=== PATIENT | female | born 1965 | race Caucasian/White ===

== ENCOUNTER 2017-03-05 23:31 | Emergency (ER) | payer BC ==
[2017-03-05 23:31] VITALS: BMI 54.6
[2017-03-05 23:59] VITALS: TEMP 98.2
[2017-03-06] MEDS ORDERED: Albuterol-Ipratrop 3 mg / 0.5 (3 ml) UD IH STA (01:13)
--- NOTE | 2017-03-06 01:14 | ED PDOC ---
Arrival/HPI - General Chief Complaint: Cough, Cold, Congestion Time Seen by Provider: 03/06/17 01:04 Historian: Patient - History of Present Illness Narrative History of Present Illness (Text): 03/06/17 01:13 Virginia Cárdenas is a 51 year old female, whose past medical history includes hypertension and chronic back pain, who presents to the Emergency department complaining of dry cough for 1 month. Patient states she was seen by her PMD for similar complaints recently and treated with antibiotics and nebulizer treatments, but denies any significant relief. Patient denies any fever, chills , chest pain, shortness of breath, nausea, vomiting, diarrhea, urinary symptoms , back pain, neck pain, headache, dizziness, or any other complaints. PMD: Dr. Hinkle Time/Duration: Other (1 month) Symptom Onset: Gradual Symptom Course: Unchanged Activities at Onset: Light Context: Home Past Medical History - Provider Review Nursing Documentation Reviewed: Yes - Infectious Disease Hx of Infectious Diseases: None - Tetanus Immunization Tetanus Immunization: Unknown - Reproductive Menopause: Yes - Cardiac Hx Cardiac Disorders: Yes Hx Hypertension: Yes - Pulmonary Hx Respiratory Disorders: No - Neurological Hx Neurological Disorder: No - HEENT Hx HEENT Disorder: No - Renal Hx Renal Disorder: No - Endocrine/Metabolic Hx Endocrine Disorders: No - Hematological/Oncological Hx Blood Transfusions: Yes Hx Blood Transfusion Reaction: No - Integumentary Hx Dermatological Disorder: Yes (ABSCESS TO LEG /CELLULITIS) - Musculoskeletal/Rheumatological Hx Musculoskeletal Disorders: Yes (SPINAL STENOSIS) Hx Falls: No - Gastrointestinal Hx Gastrointestinal Disorders: Yes Hx Diverticulitis: Yes - Genitourinary/Gynecological Hx Genitourinary Disorders: No - Psychiatric Hx Psychophysiologic Disorder: Yes Hx Depression: Yes Hx Emotional Abuse: No Hx Physical Abuse: No Hx Substance Use: No - Surgical History Other/Comment: BREAST REDUCTION - Anesthesia Hx Anesthesia Reactions: No Hx Malignant Hyperthermia: No - Suicidal Assessment Feels Threatened In Home Enviroment: No Family/Social History - Physician Review Nursing Documentation Reviewed: Yes Family/Social History: Unknown Family HX Smoking Status: Never Smoked Hx Alcohol Use: No Hx Substance Use: No Hx Substance Use Treatment: No Allergies/Home Meds Allergies/Adverse Reactions: Allergies No Known Allergies Allergy (Verified 02/08/16 13:15) Review of Systems - Physician Review All systems were reviewed & negative as marked: Yes - Review of Systems Constitutional: Normal. absent: Fevers Eyes: Normal ENT: Normal Respiratory: Cough. absent: Sputum Cardiovascular: Normal. absent: Chest Pain Gastrointestinal: Normal. absent: Abdominal Pain, Diarrhea, Nausea, Vomiting Genitourinary Female: Normal. absent: Dysuria, Frequency, Hematuria, Urine Output Changes Musculoskeletal: Normal. absent: Back Pain, Neck Pain Skin: Normal. absent: Rash Neurological: Normal. absent: Headache, Dizziness Endocrine: Normal Hemo/Lymphatic: Normal Psychiatric: Normal Physical Exam Vital Signs Reviewed: Yes Vital Signs Temp Pulse Resp BP Pulse Ox 03/05/17 23:57 98.2 F 99 H 20 149/102 H 95 Temperature: Afebrile Blood Pressure: Normal Pulse: Regular Respiratory Rate: Normal Appearance: Positive for: Well-Appearing, Non-Toxic, Comfortable Pain Distress: None Mental Status: Positive for: Alert and Oriented X 3 - Systems Exam Head: Present: Atraumatic, Normocephalic Pupils: Present: PERRL Extroacular Muscles: Present: EOMI Conjunctiva: Present: Normal Mouth: Present: Moist Mucous Membranes Neck: Present: Normal Range of Motion Respiratory/Chest: Present: Rhonchi. No: Respiratory Distress, Accessory Muscle Use Cardiovascular: Present: Regular Rate and Rhythm, Normal S1, S2. No: Murmurs Abdomen: Present: Normal Bowel Sounds. No: Tenderness, Distention, Peritoneal Signs Back: Present: Normal Inspection Upper Extremity: Present: Normal Inspection. No: Cyanosis, Edema Lower Extremity: Present: Normal Inspection. No: Edema Neurological: Present: GCS=15, CN II-XII Intact, Speech Normal Skin: Present: Warm, Dry, Normal Color. No: Rashes Psychiatric: Present: Alert, Oriented x 3, Normal Insight, Normal Concentration Medical Decision Making ED Course and Treatment: 03/06/17 01:13 Impression: 51 year old female complaining of dry cough for 1 month. Differential Diagnosis included but are not limited to: bronchitis Plan: -- CXR -- Duoneb -- Reassess and disposition Prior Visits: Notes and results from previous visits were reviewed. On 02/08/2016, pt was seen in the Emergency department for vaginal and rectal bleeding. Pt was admitted to the hospital for further evaluation. Progress Notes: 03/06/17 02:46 Reviewed radiology, Chest X-ray shows no acute processes. 03/06/17 03:15 On re-evaluation, patient feels better and is in no acute distress. I have discussed the results and plan with the patient, who expresses understanding. Patient in agreement with plan to be discharged home. Patient is stable for discharge. Patient was instructed to follow up with physician or return if symptoms worsen or new concerning symptoms arise. - RAD Interpretation Radiology Orders: 03/06/17 01:14 CHEST TWO VIEWS (PA/LAT) [RAD] Stat Mechanic Foreman: ED Physician - Medication Orders Current Medication Orders: Azithromycin (Zithromax) 500 mg PO ONCE STA PRN Reason: Protocol Stop: 03/06/17 03:20 Discontinued Medications Albuterol/Ipratropium (Duoneb 3 Mg/0.5 Mg (3 Ml) Ud) 3 ml IH ONCE STA Stop: 03/06/17 01:14 Last Admin: 03/06/17 01:26 Dose: 3 ml - Scribe Statement The provider has reviewed the documentation as recorded by the Tez Alba Provider Scribe Attestation: All medical record entries made by the Scribe were at my direction and personally dictated by me. I have reviewed the chart and agree that the record accurately reflects my personal performance of the history, physical exam, medical decision making, and the department course for this patient. I have also personally directed, reviewed, and agree with the discharge instructions and disposition. Disposition/Present on Arrival - Present on Arrival Any Indicators Present on Arrival: No History of DVT/PE: No History of Uncontrolled Diabetes: No Urinary Catheter: No History of Decub. Ulcer: No History Surgical Site Infection Following: None - Disposition Have Diagnosis and Disposition been Completed?: Yes Diagnosis: Bronchitis Disposition: HOME/ ROUTINE Disposition Time: 03:16 Patient Plan: Discharge Patient Problems: Current Active Problems Problem Status Onset Bronchitis Acute Condition: GOOD Discharge Instructions (ExitCare): Acute Bronchitis (ED) Additional Instructions: Continue your current meds/take meds as prescribed/follow up with your doctor this week Prescriptions: Benzonatate [Tessalon Perles] 100 mg PO TID PRN #21 sgl PRN Reason: Cough Azithromycin [Zithromax] 250 mg PO DAILY #4 tab Forms: [employer] ([place])
[2017-03-06 03:31] VITALS: BP 132/98; PULSE 85; RESP 18; O2SAT 98
--- NOTE | 2017-03-06 08:37 | RAD ---
HISTORY: cough COMPARISON: 02/08/2016 TECHNIQUE: Chest PA and lateral FINDINGS: LUNGS: No active pulmonary disease. PLEURA: No significant pleural effusion identified. No pneumothorax apparent. CARDIOVASCULAR: Normal. OSSEOUS STRUCTURES: No significant abnormalities. VISUALIZED UPPER ABDOMEN: Normal. OTHER FINDINGS: None. IMPRESSION: No active disease.
== END 2017-03-06 03:32 | disposition home or self-care (01) ==
LOC: ED 23:31
DX: J40 Bronchitis, not specified as acute or chronic (principal); I10 Essential (primary) hypertension

== ENCOUNTER 2017-07-03 06:36 | Day surgery (SDC) | payer MEDICAID ==
[2017-07-03 07:15] VITALS: BMI 54.6
[2017-07-03] MEDS ORDERED: Propofol 10 mg/ml Inj (20 ML) ONE (08:38)
[2017-07-03] MEDS ORDERED: Sodium Chloride 0.9% 1,000 ML IV SCH (09:30)
[2017-07-03 09:49] VITALS: BP 141/89; PULSE 74; RESP 20; TEMP 98.1; O2SAT 96
== END 2017-07-03 10:42 | disposition home or self-care (01) ==
LOC: ENDO 06:36
PROVIDERS: ATTEND Internal Medicine
DX: K25.9 Gastric ulcer, unspecified as acute or chronic, without hemorrhage or perforation (principal); K29.50 Unspecified chronic gastritis without bleeding; B96.81 Helicobacter pylori [H. pylori] as the cause of diseases classified elsewhere; K29.80 Duodenitis without bleeding; I10 Essential (primary) hypertension; J45.909 Unspecified asthma, uncomplicated; M51.26 Other intervertebral disc displacement, lumbar region; K51.90 Ulcerative colitis, unspecified, without complications; Z98.51 Tubal ligation status; K76.9 Liver disease, unspecified
CPT/HCPCS: 43239; 82948; 84703; 88305; 88342; J2001; J2704; J7040

== ENCOUNTER 2017-08-07 09:52 | Inpatient (IN) | payer MEDICAID ==
[2017-08-07] MEDS ORDERED: Bupivacaine 0.5% Inj(30mL) ONE (10:58)
[2017-08-07] MEDS ORDERED: Iohexol 240 (50 ml) ONE (10:58)
[2017-08-07] MEDS ORDERED: Midazolam 2 MG/2 ML VIAL ONE (11:39)
[2017-08-07] MEDS ORDERED: Propofol 10 mg/ml Inj (20 ML) ONE (11:39)
[2017-08-07] MEDS ORDERED: Lidocaine 2% Inj (20ml) ONE (11:39)
[2017-08-07] MEDS ORDERED: Rocuronium 10 mg/ml (5 ml) ONE ×2 (11:40→13:11)
[2017-08-07] MEDS ORDERED: Succinylcholine 200 mg/10 ml Inj IV ONE (11:40)
[2017-08-07] MEDS ORDERED: Sevoflurane - Inhalation Anesthetic Liq (250 ml) ONE (13:15)
[2017-08-07] MEDS ORDERED: Neostigmine Methylsulfate 3mg/3ml Syringe IV ONE (14:01)
[2017-08-07] MEDS ORDERED: Glycopyrrolate 0.2 mg/ml (2ml vial) ONE (14:02)
[2017-08-07] MEDS ORDERED: Bupivacaine Liposomal Inj 20 ml ONE (14:06)
[2017-08-07] MEDS: HYDROmorphone 0.5 mg/0.5 ml ISec IVP PRN ×3 (14:55→19:13)
[2017-08-07] MEDS ORDERED: Lactated Ringer's 1,000 ML IV SCH ×2 (15:00→15:45)
--- NOTE | 2017-08-07 15:48 | RAD ---
PROCEDURE: Operative cholangiogram HISTORY: ? CBD OBST COMPARISON: TECHNIQUE: Fluoroscopy was provided in the operating room. 26.4 seconds of fluoro time with cumulative dose of 9.64 mGy. Three images were submitted FINDINGS: There are no filling defects seen in the common duct. Contrast flows into the duodenum without obstruction IMPRESSION: As above
[2017-08-07] MEDS: Piperacillin/Tazobact 3.375 gm 100 ML IVPB SCH (18:58)
[2017-08-07] MEDS: Albuterol-Ipratrop 3 mg / 0.5 (3 ml) UD IH SCH (20:26)
[2017-08-08] MEDS: Piperacillin/Tazobact 3.375 gm 100 ML IVPB SCH ×3 (00:01→17:14)
[2017-08-08] MEDS: Albuterol-Ipratrop 3 mg / 0.5 (3 ml) UD IH SCH ×4 (01:23→20:16)
[2017-08-08] MEDS: HYDROmorphone 0.5 mg/0.5 ml ISec IVP PRN ×4 (03:55→21:04)
[2017-08-08] MEDS: Lactated Ringer's 1,000 ML IV SCH ×4 (06:00→18:27)
[2017-08-08 07:31] LABS: MEAN CELL VOLUME 92.5 fl (80.0-105.0); MEAN CORPUSCULAR HEMOGLOBIN 29.8 pg (25.0-35.0); MEAN CORPUSCULAR HGB CONC 32.2 g/dl (31.0-37.0); MEAN PLATELET VOLUME 12.1 fl (7.0-11.0); RBC 3.86 10^6/uL (3.5-6.1); RED CELL DISTRIBUTION WIDTH 13.8 % (11.5-14.5); WHITE BLOOD COUNT 6.1 10^3/ul (4.5-11.0)
[2017-08-08 07:32] LABS: HEMOGLOBIN 11.5 g/dL (12.0-16.0)
[2017-08-08 07:50] LABS: HDL CHOLESTEROL 38 mg/dL (29-60)
[2017-08-08 07:53] LABS: IRON 53 ug/dL (45-180)
[2017-08-08 08:00] LABS: LDL CHOLESTEROL 79 mg/dL (0-129)
[2017-08-08 08:04] LABS: % IRON SATURATION 19 % (20-55); TOTAL IRON BINDING CAPACITY 277 ug/dL (265-497)
--- NOTE | 2017-08-08 08:22 | HP ---
The patient is a 52-year-old female. CHIEF COMPLAINT: Abdominal pain. HISTORY OF PRESENT ILLNESS: Ms. Virginia Cárdenas is a 52-year-old, my private patient with history of multiple medical problems, came to [facility] with abdominal pain, has multiple times history of has nauseous, vomiting, pain was mainly epigastric for many years, now progressively worse. Patient describe it as pressure and grinding sensation and that is constant and nonradiating , more with food intake and associated with nausea, but no vomiting. Then, we admitted the patient to Dr. Edgard Pappas, who did the surgery, cholecystectomy. Patient had EGD, colonoscopy done in [address] Yeboah, which showed gastritis, duodenitis, dysphagia and gastric ulcers. Patient's colonoscopy showed diverticulosis. Patient reports constipation at times. Patient often takes Nexium and Zantac without any relief of her symptoms. REVIEW OF SYSTEMS: The patient was seen in her room, is in pain, sleepy, arousable, under the influence of anesthesia. No fever. No chills. No headache. No dizziness. No chest pain. No palpitation. But having abdominal pain. PAST MEDICAL HISTORY: Hypertension, asthma, herniated disc, ulcerative colitis, history of total of 4 pregnancies, total living children 3, miscarriage 1, section x2, in 1991, tubal ligation in 1994. FAMILY HISTORY: Father alive, mother alive, 6 brothers, 4 sisters. No family history of cancer. SOCIAL HISTORY: Tobacco use, no. Drugs, no. Alcohol, no. PHYSICAL EXAMINATION: VITAL SIGNS: Temperature 97.9, pulse 80, blood pressure 127/ 8o , respiratory rate 20. HEENT: Head is normocephalic and atraumatic. Eyes, PERRLA. Extraocular muscles are intact. Conjunctivae clear. Nose patent. Mucous membranes moist. NECK: Supple. No carotid bruit. No JVD or thyromegaly. CHEST: Bilaterally symmetrical. HEART: S1 and S2 positive. LUNGS: Clear to auscultation. ABDOMEN: Soft. Bowel sounds present. No organomegaly. EXTREMITIES: No edema. No cyanosis. NEUROLOGIC: The patient is sleepy, but arousable. Moving all 4 extremities. No focal deficit. LABORATORY DATA: We do not have recent labs today, but I reviewed old labs. On 08/04, white blood cell is 4.1, hemoglobin 13.5, hematocrit 40.9, platelets 178. ASSESSMENT AND PLAN: Ms. Virginia Cárdenas is a 52-year-old lady with history of cholelithiasis, today underwent laparoscopic exploratory cholecystectomy with intraoperative cholangiogram. Postoperative diagnoses are cholecystitis, cholelithiasis. Procedure is done by Dr. Edgard Pappas, did lysis of the adhesions also, history of hypertension, hypercholesterolemia, obesity, herniated disc of the back, history of peptic ulcer disease. Plan for endoscopy. CAT scan of the abdomen and pelvis was done. even transvaginal ultrasound was done, abdominal ultrasound was done, reviewed by me. Now, gastrointestinal and deep venous thrombosis prophylaxis. Pain management. Wound care as per the surgical team, history of abscess in the legs, spinal stenosis. epidural injections couple of times, colitis and diverticulitis and will follow up. Laurel Hinkle MD MTDFrandy
[2017-08-08] MEDS ORDERED: Non Formulary Medication (Omeprazole [Omeprazole] 40 MG) PO SCH (10:00)
[2017-08-08] MEDS: Pantoprazole 40 mg EC Tab PO SCH (10:06)
[2017-08-08 10:51] LABS: ALB/GLOB RATIO 1.2 (1.1-1.8); ALBUMIN 3.4 g/dL (3.0-4.8); ALT/SGPT 68 U/L (7-56); AST/SGOT 65 U/L (14-36); BLOOD UREA NITROGEN 13 mg/dL (7-21); CALCIUM 8.6 mg/dL (8.4-10.5); GFR AFRICAN-AMERICAN > 60; GFR NON-AFRICAN AMERICAN > 60
--- NOTE | 2017-08-08 11:26 | CP.PCM.PN ---
Subjective - Date & Time of Evaluation Date of Evaluation: 08/08/17 Time of Evaluation: 11:21 - Subjective Subjective: Surgery: Dr. Pappas Pt seen and examined. States she feels ok but has some post-op pain. She is out of bed to chair and states she would like something to drink. Denies nausea, vomiting, fevers or chills. Objective - Vital Signs/Intake and Output Vital Signs (last 24 hours): Temp Pulse Resp BP Pulse Ox 98.3 F 68 19 108/68 94 L 08/08/17 08:19 08/08/17 10:06 08/08/17 08:19 08/08/17 10:06 08/08/17 08:19 Intake and Output: 08/08/17 08/08/17 06:59 18:59 Intake Total 2020 Output Total 80 Balance 1940 - Medications Medications: Current Medications Albuterol/Ipratropium (Duoneb 3 Mg/0.5 Mg (3 Ml) Ud) 3 ml IH [id number] [facility] Last Admin: 08/08/17 07:29 Dose: 3 ml Amlodipine Besylate (Norvasc) 10 mg PO DAILY [facility] Last Admin: 08/08/17 10:06 Dose: Not Given Docusate Sodium (Colace) 100 mg PO BID [facility] Last Admin: 08/08/17 10:06 Dose: 100 mg Furosemide (Lasix) 40 mg PO DAILY [facility] Last Admin: 08/08/17 10:06 Dose: 40 mg Hydromorphone HCl (Dilaudid) 0.5 mg IVP Q4H PRN PRN Reason: Pain, severe (8-10) Last Admin: 08/08/17 10:05 Dose: 0.5 mg Lactated Ringer's (Lactated Ringer's) 1,000 mls @ 150 mls/hr IV .Q6H40M [facility] Stop: 08/09/17 05:31 Last Admin: 08/08/17 10:18 Dose: 150 mls/hr Ibuprofen (Motrin Tab) 400 mg PO Q6 PRN PRN Reason: Fever >100.4 F Losartan Potassium (Cozaar) 100 mg PO DAILY [facility] Last Admin: 08/08/17 10:06 Dose: 100 mg Metoclopramide HCl (Reglan) 10 mg IV ONCE PRN PRN Reason: Nausea/Vomiting Metoprolol Tartrate (Lopressor) 50 mg PO DAILY [facility] Last Admin: 08/08/17 10:06 Dose: 50 mg Nortriptyline HCl (Pamelor) 10 mg PO [facility] Last Admin: 08/07/17 22:18 Dose: 10 mg Ondansetron HCl (Zofran Inj) 4 mg IVP Q6H PRN PRN Reason: Nausea/Vomiting Oxycodone HCl (Oxycodone Immediate Release Tab) 5 mg PO Q6H PRN PRN Reason: Pain, moderate (4-7) Pantoprazole Sodium (Protonix Ec Tab) 40 mg PO ACB [facility] Last Admin: 08/08/17 10:06 Dose: 40 mg Tizanidine HCl (Zanaflex) 2 mg PO [facility] Last Admin: 08/07/17 22:18 Dose: 2 mg - Labs Labs: 08/08/17 07:00 08/08/17 07:00 - Constitutional Appears: No Acute Distress - Eye Exam Eye Exam: Normal appearance - ENT Exam ENT Exam: Mucous Membranes Moist - Respiratory Exam Respiratory Exam: NORMAL BREATHING PATTERN - Cardiovascular Exam Cardiovascular Exam: RRR - GI/Abdominal Exam GI & Abdominal Exam: Soft, Tenderness (around RUQ incision, lupe drain in place with serosang fluid ). absent: Distended, Guarding - Neurological Exam Neurological Exam: Alert, Awake, Oriented x3 - Skin Skin Exam: Dry, Warm Assessment and Plan - Assessment and Plan (Free Text) Assessment: 52F s/p lap bryan converted to open; POD#1 Plan: - start CLD; will advance slowly as tolerated - monitor bowel function - encourage ambulation - monitor BP - d/w Dr. Mian Chao, PGY-3
[2017-08-08 13:00] LABS: FOLATE 12.2 ng/mL
[2017-08-08] MEDS: oxyCODONE 5 mg Immediate Release Tab PO PRN (13:28)
[2017-08-08 22:56] VITALS: RESP 20
[2017-08-08] MEDS ORDERED: Pneumococcal 23-Valent Vaccine IM ONE (22:57)
[2017-08-09] MEDS: Lactated Ringer's 1,000 ML IV SCH ×3 (00:17→15:02)
[2017-08-09] MEDS: oxyCODONE 5 mg Immediate Release Tab PO PRN ×4 (00:20→21:39)
--- NOTE | 2017-08-09 00:59 | PN ---
DATE: 08/08/2017 SUBJECTIVE: The patient was seen and examined at bedside. , mother and daughter was sitting on the bedside also. Still having abdominal pain. Do not have flatus, want to eat. Dr. Kelly started on clear liquid diet. No fever. No chills. Postoperative day 1. PHYSICAL EXAMINATION: VITAL SIGNS: Temperature 98.3, pulse 58, respiratory rate 19, blood pressure 108/58, pulse oximetry 94. HEENT: Head normocephalic, atraumatic. Eyes: PERRLA. Extraocular muscles intact. Conjunctivae clear. Nose patent. NECK: Supple. No carotid bruit. No JVD or thyromegaly. CHEST: Bilaterally symmetrical. HEART: S1 and S2 positive. LUNGS: Clear to auscultation. ABDOMEN: Soft. Bowel sounds present. No organomegaly. EXTREMITIES: No edema. No cyanosis. NEUROLOGICAL: The patient is awake and alert. Moving all 4 extremities. No focal deficits. MEDICATIONS: DuoNeb, Norvasc, Colace, Lasix, Dilaudid, ringer Lactate, Motrin, Cozaar, Reglan, Lopressor, nortriptyline, Zofran, oxycodone, Protonix, Zanaflex. LABORATORY DATA: White blood cells 6.1, hemoglobin 11.5, hematocrit 35.7, platelets 150. Sodium 140, potassium 3.9, BUN 13, creatinine 0.7, glucose 101. ASSESSMENT AND PLAN: Ms. Virginia Cárdenas is a 52-year-old lady with anemia, status post laparoscopic cholecystectomy converted to open, postoperative day 1. Started clear liquid diet, we will advance slowly as tolerated. Awaiting bowel function. Encouraging ambulation, resume blood pressure. Discussion with Dr. Kelly. Reviewed Dr. Kelly's notes. The patient has history of obesity, herniated disk, hypertension, asthma, history of ulcerative colitis. Gastrointestinal and deep venous thrombosis prophylaxis. Blood pressure is 122/72, very well controlled. We will follow up. Laurel Hinkle MD
[2017-08-09] MEDS: Albuterol-Ipratrop 3 mg / 0.5 (3 ml) UD IH SCH ×4 (01:14→20:09)
[2017-08-09] MEDS: HYDROmorphone 0.5 mg/0.5 ml ISec IVP PRN (04:08)
[2017-08-09] MEDS: Piperacillin/Tazobact 3.375 gm 100 ML IVPB SCH ×2 (06:13→13:00)
[2017-08-09 07:09] LABS: BASO # 0.03 K/mm3 (0.0-2.0); BASO % 0.5 % (0.0-3.0); EOS # 0.1 (0.0-0.7); GRAN % 61.3 % (50.0-68.0); HEMOGLOBIN 11.6 g/dL (12.0-16.0); LYMPH # 1.6 (1.2-3.4); LYMPH % 23.9 % (22.0-35.0); MEAN CELL VOLUME 93.3 fl (80.0-105.0); MEAN CORPUSCULAR HEMOGLOBIN 29.7 pg (25.0-35.0); MEAN CORPUSCULAR HGB CONC 31.9 g/dl (31.0-37.0); MEAN PLATELET VOLUME 12.4 fl (7.0-11.0); MONO # 0.8 (0.1-0.6); MONO % 12.3 % (1.0-6.0); RBC 3.9 10^6/uL (3.5-6.1); RED CELL DISTRIBUTION WIDTH 13.9 % (11.5-14.5); WHITE BLOOD COUNT 6.5 10^3/ul (4.5-11.0)
[2017-08-09] MEDS: Pantoprazole 40 mg EC Tab PO SCH (08:12)
[2017-08-09 08:13] LABS: ALB/GLOB RATIO 1.2 (1.1-1.8); ALBUMIN 3.5 g/dL (3.0-4.8); ALT/SGPT 75 U/L (7-56); AST/SGOT 59 U/L (14-36); BLOOD UREA NITROGEN 6 mg/dL (7-21); CALCIUM 8.4 mg/dL (8.4-10.5); GFR AFRICAN-AMERICAN > 60; GFR NON-AFRICAN AMERICAN > 60
--- NOTE | 2017-08-09 08:22 | CP.PCM.PN ---
Subjective - Date & Time of Evaluation Date of Evaluation: 08/09/17 Time of Evaluation: 08:19 - Subjective Subjective: Patient seen and examined at bedside. Per nursing no acute events occurred overnight. Patient denies any fevers, chills, nausea, vomiting, headaches, dizziness, changes in vision, or any other complaints. Objective - Vital Signs/Intake and Output Vital Signs (last 24 hours): Temp Pulse Resp BP Pulse Ox 98.7 F 90 20 108/62 95 08/09/17 06:00 08/09/17 06:00 08/09/17 06:00 08/09/17 06:00 08/09/17 06:00 Intake and Output: 08/09/17 08/09/17 06:59 18:59 Intake Total 2880 Output Total 40 Balance 2840 - Medications Medications: Current Medications Albuterol/Ipratropium (Duoneb 3 Mg/0.5 Mg (3 Ml) Ud) 3 ml IH [id number] [facility] Last Admin: 08/09/17 07:57 Dose: 3 ml Amlodipine Besylate (Norvasc) 10 mg PO DAILY [facility] Last Admin: 08/08/17 10:06 Dose: Not Given Docusate Sodium (Colace) 100 mg PO BID [facility] Last Admin: 08/08/17 17:14 Dose: 100 mg Furosemide (Lasix) 40 mg PO DAILY [facility] Last Admin: 08/08/17 10:06 Dose: 40 mg Hydromorphone HCl (Dilaudid) 0.5 mg IVP Q4H PRN PRN Reason: Pain, severe (8-10) Last Admin: 08/09/17 04:08 Dose: 0.5 mg Piperacillin Sod/Tazobactam Sod (Zosyn 3.375 In Ns 100ml) 100 mls @ 200 mls/hr IVPB Q6 [facility] PRN Reason: Protocol Stop: 08/09/17 12:29 Last Admin: 08/09/17 06:13 Dose: 200 mls/hr Ibuprofen (Motrin Tab) 400 mg PO Q6 PRN PRN Reason: Fever >100.4 F Losartan Potassium (Cozaar) 100 mg PO DAILY [facility] Last Admin: 08/08/17 10:06 Dose: 100 mg Metoclopramide HCl (Reglan) 10 mg IV ONCE PRN PRN Reason: Nausea/Vomiting Metoprolol Tartrate (Lopressor) 50 mg PO DAILY [facility] Last Admin: 08/08/17 10:06 Dose: 50 mg Nortriptyline HCl (Pamelor) 10 mg PO HS [facility] Last Admin: 08/08/17 21:04 Dose: 10 mg Ondansetron HCl (Zofran Inj) 4 mg IVP Q6H PRN PRN Reason: Nausea/Vomiting Oxycodone HCl (Oxycodone Immediate Release Tab) 5 mg PO Q6H PRN PRN Reason: Pain, moderate (4-7) Last Admin: 08/09/17 00:20 Dose: 5 mg Pantoprazole Sodium (Protonix Ec Tab) 40 mg PO ACB [facility] Last Admin: 08/09/17 08:12 Dose: 40 mg Tizanidine HCl (Zanaflex) 2 mg PO [facility] Last Admin: 08/08/17 21:04 Dose: 2 mg - Labs Labs: 08/09/17 06:15 08/09/17 07:30 - Head Exam Head Exam: ATRAUMATIC, NORMAL INSPECTION, NORMOCEPHALIC - Eye Exam Eye Exam: EOMI - ENT Exam ENT Exam: Mucous Membranes Moist - Respiratory Exam Respiratory Exam: NORMAL BREATHING PATTERN - Cardiovascular Exam Cardiovascular Exam: REGULAR RHYTHM - GI/Abdominal Exam GI & Abdominal Exam: Normal Bowel Sounds Additional comments: Drain in place. No erythema or discharge noted. - Extremities Exam Extremities Exam: Normal Inspection - Back Exam Back Exam: NORMAL INSPECTION - Neurological Exam Neurological Exam: Alert, Awake - Psychiatric Exam Psychiatric exam: Normal Affect, Normal Mood - Skin Skin Exam: Dry Assessment and Plan - Assessment and Plan (Free Text) Assessment: 52 year old female s/p Cholecystectomy POD#2 Plan: -Continue pain management -Advance diet as tolerated. -Encouraged spirometry and ambulating daily Will discuss further rec's with Attending.
--- NOTE | 2017-08-09 11:23 | CP.PCM.PCO ---
Physician Communication Note - Physician Communication Note Physician Communication Note: c/o painful incision-Coughing bloody sputa-c/d GB Neg
[2017-08-10] MEDS: Albuterol-Ipratrop 3 mg / 0.5 (3 ml) UD IH SCH ×6 (00:10→15:55)
[2017-08-10] MEDS: oxyCODONE 5 mg Immediate Release Tab PO PRN ×2 (03:42→11:33)
[2017-08-10] MEDS: Piperacillin/Tazobact 3.375 gm 100 ML IVPB SCH ×2 (04:54→05:46)
[2017-08-10 07:11] LABS: BASO # 0.03 K/mm3 (0.0-2.0); BASO % 0.6 % (0.0-3.0); EOS # 0.2 (0.0-0.7); EOS % 3.1 % (1.5-5.0); GRAN # 2.98 (1.4-6.5); GRAN % 58.7 % (50.0-68.0); LYMPH # 1.5 (1.2-3.4); LYMPH % 29.7 % (22.0-35.0); MEAN CELL VOLUME 93.1 fl (80.0-105.0); MEAN CORPUSCULAR HEMOGLOBIN 29.8 pg (25.0-35.0); MONO # 0.4 (0.1-0.6); MONO % 7.9 % (1.0-6.0); RBC 4.03 10^6/uL (3.5-6.1); RED CELL DISTRIBUTION WIDTH 13.8 % (11.5-14.5); WHITE BLOOD COUNT 5.1 10^3/ul (4.5-11.0)
--- NOTE | 2017-08-10 07:43 | PN ---
DATE: 08/09/2017 SUBJECTIVE: Patient is a 52-year-old female. Patient is seen and examined at bedside, looking comfortable. No nausea, vomiting, diarrhea. Hematuria or hematochezia. No swelling of the legs. No chest pain, no palpitation. No headache, no dizziness. Just complaining about the abdominal pain at the incision site. PHYSICAL EXAMINATION: VITAL SIGNS: Temperature 98.7, pulse 90, respiratory rate 20, blood pressure 98/52, pulse oximetry 95. HEENT: Head: Normocephalic, atraumatic. Eyes: PERRLA. Extraocular muscles intact. Conjunctivae clear. Nose: Patent. Mucous membrane moist. NECK: Supple. No carotid bruit. No JVD or thyromegaly. CHEST: Bilaterally symmetrical. HEART: S1 and S2 positive. LUNGS: Clear to auscultation. ABDOMEN: Soft. Bowel sounds present. No organomegaly. EXTREMITIES: No edema. No cyanosis. NEUROLOGICAL: Patient is awake and alert. Moving all 4 extremities. No focal deficits. MEDICATIONS: Amlodipine, Colace, Lasix, Dilaudid, Zosyn, Motrin, Cozaar, Reglan, Lopressor, nortriptyline, Zofran, oxycodone, Protonix. LABORATORY DATA: White blood cells 6.5, hemoglobin 11.6, hematocrit 36.4, platelets 155. Sodium 140, potassium 3.8, BUN 6, creatinine 0.6, glucose 100. ASSESSMENT AND PLAN: The patient is a 52-year-old lady with anemia, status post cholecystectomy, postoperative day number 2. Continue pain management. Advance diet as tolerated. Patient ate solid food today. Encourage spirometry and ambulation. Getting pain medication, but still has a little bit pain. According to patient, still she does not have feeling of flatus, but she is walking around. I hope after eating regular food, resume the bowel movement or at least flatus, then we can make discharge plan. discussion with Dr. Kelly. The patient has history of obesity, herniated disk of the back, hypertension, hypercholesterolemia. We will follow up. Laurel Hinkle MD [facility] # [id number] LUIS
[2017-08-10 07:59] LABS: ALB/GLOB RATIO 1.2 (1.1-1.8); ALBUMIN 3.9 g/dL (3.0-4.8); ALT/SGPT 60 U/L (7-56); AST/SGOT 43 U/L (14-36); BLOOD UREA NITROGEN 8 mg/dL (7-21); GFR AFRICAN-AMERICAN > 60; GFR NON-AFRICAN AMERICAN > 60
[2017-08-10] MEDS: Pantoprazole 40 mg EC Tab PO SCH (08:11)
[2017-08-10 09:01] VITALS: TEMP 98.2; O2SAT 96
[2017-08-10 09:08] VITALS: BP 116/76
[2017-08-10 09:43] VITALS: PULSE 84
--- NOTE | 2017-08-10 11:38 | CP.PCM.PCO ---
Physician Communication Note - Physician Communication Note Physician Communication Note: OK D/C post drain removal
[2017-08-10] MEDS ORDERED: Piperacillin/Tazobact 3.375 gm 100 ML IVPB SCH (12:00)
[2017-08-10] MEDS ORDERED: Potassium Chloride 20 mEq ER Tab PO STA (12:07)
--- NOTE | 2017-08-10 16:04 | CP.PCM.DIS ---
Provider - Provider Date of Admission: 08/08/17 07:44 Attending physician: Edgard Pappas MD Primary care physician: Laurel Hinkle MD Time Spent in preparation of Discharge (in minutes): 8 Diagnosis - Discharge Diagnosis (1) Cholecystitis Status: Acute Priority: High Hospital Course - Lab Results Lab Results: Micro Results 08/07/17 14:30 Gallbladder Tissue Culture - Final No growth. Most Recent Lab Values WBC 5.1 10^3/ul (4.5-11.0) D 08/10/17 06:30 RBC 4.03 10^6/uL (3.5-6.1) 08/10/17 06:30 Hgb 12.0 g/dL (12.0-16.0) 08/10/17 06:30 Hct 37.5 % (36.0-48.0) 08/10/17 06:30 MCV 93.1 fl (80.0-105.0) 08/10/17 06:30 MCH 29.8 pg (25.0-35.0) 08/10/17 06:30 MCHC 32.0 g/dl (31.0-37.0) 08/10/17 06:30 RDW 13.8 % (11.5-14.5) 08/10/17 06:30 Plt Count 170 10^3/uL (120.0-450.0) 08/10/17 06:30 MPV 12.0 fl (7.0-11.0) H 08/10/17 06:30 Gran % 58.7 % (50.0-68.0) 08/10/17 06:30 Lymph % (Auto) 29.7 % (22.0-35.0) 08/10/17 06:30 Hartley % (Auto) 7.9 % (1.0-6.0) H 08/10/17 06:30 Eos % (Auto) 3.1 % (1.5-5.0) 08/10/17 06:30 Baso % (Auto) 0.6 % (0.0-3.0) 08/10/17 06:30 Gran # 2.98 (1.4-6.5) 08/10/17 06:30 Lymph # (Auto) 1.5 (1.2-3.4) 08/10/17 06:30 Hartley # (Auto) 0.4 (0.1-0.6) 08/10/17 06:30 Eos # (Auto) 0.2 (0.0-0.7) 08/10/17 06:30 Baso # (Auto) 0.03 K/mm3 (0.0-2.0) 08/10/17 06:30 Sodium 142 mmol/L (132-148) 08/10/17 06:30 Potassium 3.5 mmol/L (3.6-5.0) L 08/10/17 06:30 Chloride 99 mmol/L (98-107) 08/10/17 06:30 Carbon Dioxide 33 mmol/L (21-33) 08/10/17 06:30 Anion Gap 13 (10-20) 08/10/17 06:30 BUN 8 mg/dL (7-21) 08/10/17 06:30 Creatinine 0.6 mg/dl (0.7-1.2) L 08/10/17 06:30 Est GFR ( Amer) > 60 08/10/17 06:30 Est GFR (Non-Af Amer) > 60 08/10/17 06:30 POC Glucose (mg/dL) 102 mg/dL (65-110) 08/08/17 05:52 Random Glucose 127 mg/dL (70-110) H 08/10/17 06:30 Hemoglobin A1c 5.8 % (4.2-6.5) 08/08/17 07:00 Calcium 9.0 mg/dL (8.4-10.5) 08/10/17 06:30 Phosphorus 2.8 mg/dL (2.5-4.5) 08/09/17 07:30 Magnesium 1.7 mg/dL (1.7-2.2) 08/09/17 07:30 Iron 53 ug/dL (45-180) 08/08/17 07:00 TIBC 277 ug/dL (265-497) 08/08/17 07:00 % Saturation 19 % (20-55) L 08/08/17 07:00 Total Bilirubin 0.8 mg/dL (0.2-1.3) 08/10/17 06:30 AST 43 U/L (14-36) H D 08/10/17 06:30 ALT 60 U/L (7-56) H 08/10/17 06:30 Alkaline Phosphatase 77 U/L (38-126) 08/10/17 06:30 Total Protein 7.2 g/dL (5.8-8.3) 08/10/17 06:30 Albumin 3.9 g/dL (3.0-4.8) 08/10/17 06:30 Globulin 3.2 gm/dL 08/10/17 06:30 Albumin/Globulin Ratio 1.2 (1.1-1.8) 08/10/17 06:30 Triglycerides 49 mg/dL (35-160) 08/08/17 07:00 Cholesterol 136 mg/dL (130-200) 08/08/17 07:00 LDL Cholesterol Direct 79 mg/dL (0-129) 08/08/17 07:00 HDL Cholesterol 38 mg/dL (29-60) 08/08/17 07:00 Vitamin B12 272 pg/mL (239-931) 08/08/17 07:00 Folate 12.2 ng/mL 08/08/17 07:00 TSH 3rd Generation 0.91 mIU/mL (0.46-4.68) 08/08/17 07:00 Blood Type A POSITIVE 08/07/17 10:00 Antibody Screen Positive 08/07/17 10:00 Antibody Identification Anti E 08/07/17 10:00 Antigen Identification E Antigen - NEGATIVE 08/07/17 10:00 BBK History Checked Patient has bt 08/07/17 10:00 - Hospital Course Hospital Course: Pt is a 52F who [place] [facility] [place]. Pt was taken to the OR for laparoscopic cholecystectomy but due to dense adhesions & difficult anatomy it was decided to convert to open. GB was then removed and a cholangiogram was performed which confirmed appropriate placement of clips on the cystic duct. Pt tolerated the surgery well and was admitted to the hospital. Her diet was slowly advanced as tolerated. Today pt is POD#3 and is tolerating a low fat diet. She is ambulating and admits to flatus. Denies N/V, F/C. Discharge Exam - Head Exam Head Exam: ATRAUMATIC, NORMAL INSPECTION, NORMOCEPHALIC - Eye Exam Eye Exam: Normal appearance - ENT Exam ENT Exam: Mucous Membranes Moist - Respiratory Exam Respiratory Exam: NORMAL BREATHING PATTERN - Cardiovascular Exam Cardiovascular Exam: RRR - GI/Abdominal Exam GI & Abdominal Exam: Soft. absent: Distended, Guarding Additional comments: RUQ incision with manisha in place, C/D/I - Neurological Exam Neurological exam: Alert, Oriented x3 - Skin Skin Exam: Dry, Warm Discharge Plan - Discharge Medications Prescriptions: Cephalexin [cephalexin] 500 mg PO BID #14 cap Docusate [Colace] 100 mg PO BID #14 cap - Follow Up Plan Condition: GOOD Disposition: HOME/ ROUTINE Instructions: Cholecystectomy, Open Surgery, Low Cholesterol, Saturated Fat, and Trans Fat Diet , Shortness of Breath (Dyspnea) (DC), Wound Care (DC) Additional Instructions: Please follow up with Dr. Pappas in his office in one week. Please follow up with your primary care doctor within one week for post hospitalization follow up. You may shower but do not soak or swim until you've been seen by Dr. Pappas in his office. Please do not lift anything heavier than 10lbs until you've been seen by Dr. Pappas in his office. Please take stool softener with your pain medication, Ultram. Please adhere to a low fat diet. If your symptoms worsen or persist, please seek emergency medical attention. Referrals: Laurel Hinkle MD [Primary Care Provider] -
--- NOTE | 2017-08-14 20:49 | OP ---
PROCEDURE DATE: 08/07/2017 She is admitted and operated on 08/07/2017 from the same-day surgery. SURGEON: Edgard Pappas MD RN REHAB: Clover Chao DO, PGY-3. SECOND RN REHAB: Xochitl Castaneda DO, PGY-1. ANESTHESIA ADMINISTERED BY: Nathan Nunez MD. PREOPERATIVE DIAGNOSES: 1. Recurrent cholecystitis - cholelithiasis. 2. Super morbid obesity. 3. Peptic ulcer disease. POSTOPERATIVE DIAGNOSES: 1. Recurrent cholecystitis - cholelithiasis. 2. Super morbid obesity. 3. Peptic ulcer disease. PROCEDURES: 1. Laparoscopy with lysis of adhesions. 2. Conversion to open laparotomy. 3. Intraoperative cholangiogram. OPERATIVE INDICATION: The patient is a 52-year-old super morbid obese female with chronic recurring abdominal pain secondary to symptomatic cholecystitis. She in addition has significant peptic ulcer disease and has only just recently started treating this with proton pump inhibitors. She has been advised to undergo laparoscopic cholecystectomy and the risks, benefits and the alternatives were all explained and the patient signs the informed consent. OPERATIVE NOTE: The patient was brought to the operating room from the same day holding area, identified by her wrist band, undergoes time-out procedure and is placed on the table in a supine manner. Following the induction of general anesthesia and the insertion of an endotracheal tube, sequential compression devices were placed in the lower extremities and the abdomen is prepped with Hibiclens chlorhexidine preparation and aseptically draped. The umbilicus was elevated on towel clips and infiltrated with 0.5% bupivacaine at all port sites and the incision made just above the umbilicus and Veress needle inserted and the abdomen insufflated with carbon dioxide gas to 14 mmHg pressure. The needle was removed, replaced with an 11 mm Versaport under the direct vision with the indwelling Storz laparoscope and the abdomen once entered completely explored. The patient is 5 feet 3 inches and 310 pounds with a BMI close to 50 and surprisingly the standard length ports do make it into the peritoneal cavity. Extremely dense adhesions are found in the right upper quadrant. Remainder of the exam was otherwise unremarkable and under direct vision, a 11-mm port was placed in the right subxiphoid location and two 5 mm ports placed in the right upper quadrant at the level of the umbilicus. The table was rotated to the left in a reverse Trendelenburg and adhesions strip from the gallbladder removing fluid at this point, which was cultured aerobically and anaerobically and the rudolph hepatis is carefully dissected free. Dense adhesions and oozing are encountered and a small leakage at the extreme bottom of the gallbladder was encountered and grasped with Prestige clamp. Attempts at performing cholangiography through this opening were unsuccessful due to the inability of the catheters balloon to seal the opening. At this point, due to concerns about the anatomy and the patient's safety, it is elected to convert this procedure to an open one and the ports and instruments were now removed. The patient is placed level supine and a right subcostal incision is made with sharp dissection through the subcutaneous tissues and the rectus musculature down to the anterior fascia. Once the peritoneum was entered between clamps and the incision extended along the direction of the skin wound, the Bookwalter retractor was employed with laparotomy tapes and the gallbladder was now visualized and exposed. The rudolph hepatis is still densely obscured by adhesions from recurring attacks and it is elected at this point to remove the gallbladder from the liver bed from the top down in a prograde fashion. Once the cystic artery is encountered and ligated, the cystic duct is then visualized and it is apparent that there is an opening at the very immediate connection of the cystic duct and the gallbladder and #6 operating Cholangiocath catheter was inserted and using a Borgas clamp. The cholangiogram was performed using Omnipaque dye and demonstrating free flow of contrast into the duodenum without evidence of any common duct stones. Catheters removed. The duct is triply hemoclipped and ligated with 2-0 chromic catgut ligature and the gallbladder is now submitted to pathology in formalin after culturing its content as well. The liver bed is examined for hemostasis. Electrocoagulated were visualized and Gelfoam pack placed against the liver bed. The abdomen was drained with a Jefe 15-Slovenian catheter inserted through the lateral port site and secured with 2-0 Surgidac polyester suture. The catheter was now placed in the hepatorenal space of Morison. The area was lavaged once more, aspirated. Hemostasis is confirmed and the wound is now closed after removing retractors, packs and tapes. The peritoneum was closed with a running 0 Polysorb continuous suture and the anterior fascia with double-stranded #2 PDS suture. The fascia and skin are now infiltrated with bupivacaine injections and the subcutaneous space lavaged with copious quantities of saline solution and aspirated. The subcutaneous space was closed with 3-0 Polysorb suture and the skin with the Auto Suture skin stapler. The other port sites were likewise closed and the patient was awakened, extubated and transported to the recovery room in a satisfactory condition. Sponge, instrument and suture count were verified as correct at the end of the procedure. Estimated blood loss during this procedure was less than 150 mL of blood. Edgard Pappas MD
== END 2017-08-10 17:28 | disposition home or self-care (01) | DRG 198 ==
LOC: SDS 09:52 → 5RSO 14:54 → OBSVTOIN 08-08 07:44
PROVIDERS: ADMIT Surgery; ATTEND Surgery
PROC: BF131ZZ Fluoroscopy of Gallbladder and Bile Ducts using Low Osmolar Contrast (ICD-10-PCS; 2017-08-07)
PROC: 0FT40ZZ Resection of Gallbladder, Open Approach (ICD-10-PCS; principal; 2017-08-07 12:00)
PROC: 0FJ44ZZ Inspection of Gallbladder, Percutaneous Endoscopic Approach (ICD-10-PCS; 2017-08-07 12:00)
PROC: 0DNW4ZZ Release Peritoneum, Percutaneous Endoscopic Approach (ICD-10-PCS; 2017-08-07 12:00)
DX: K80.10 Calculus of gallbladder with chronic cholecystitis without obstruction (principal); Z53.31 Laparoscopic surgical procedure converted to open procedure; K51.90 Ulcerative colitis, unspecified, without complications; J45.909 Unspecified asthma, uncomplicated; I10 Essential (primary) hypertension; E78.00 Pure hypercholesterolemia, unspecified; M51.9 Unspecified thoracic, thoracolumbar and lumbosacral intervertebral disc disorder; D64.9 Anemia, unspecified; E66.01 Morbid (severe) obesity due to excess calories; Z68.43 Body mass index [BMI] 50.0-59.9, adult; Z87.11 Personal history of peptic ulcer disease

== ENCOUNTER 2017-09-11 06:23 | Day surgery (SDC) | payer MEDICAID ==
[2017-08-30 09:51] VITALS: BMI 53.1
[2017-09-11] MEDS ORDERED: Propofol 10 mg/ml Inj (20 ML) ONE (07:55)
[2017-09-11] MEDS ORDERED: Phenylephrine 10 mg/ml Inj ONE (07:56)
[2017-09-11] MEDS ORDERED: Sodium Chloride 0.9% 1,000 ML IV SCH (08:15)
[2017-09-11 08:22] VITALS: RESP 16
[2017-09-11 09:18] VITALS: BP 142/86; PULSE 65; TEMP 97.5; O2SAT 95
== END 2017-09-11 09:32 | disposition home or self-care (01) ==
LOC: ENDO 06:23
PROVIDERS: ATTEND Internal Medicine
DX: K29.70 Gastritis, unspecified, without bleeding (principal); K44.9 Diaphragmatic hernia without obstruction or gangrene
CPT/HCPCS: 43239; 88305; 88342; J2370; J2704; J7030; J7040

== ENCOUNTER 2018-07-22 12:43 | Outpatient (CLI) | payer MEDICAID | END 2018-07-22 12:44 | disposition home or self-care (01) | LOC: RAD 12:43 ==

== ENCOUNTER 2018-07-23 12:34 | Outpatient (CLI) | payer MEDICAID | END 2018-07-23 12:35 | disposition home or self-care (01) | LOC: RAD 12:34 ==